=== PATIENT | male | born 1975 | race Caucasian/White ===

== ENCOUNTER 2017-12-13 12:11 | Inpatient (IN) | payer OTHER ==
[~2017-12-13] VITALS: Ht 175.3 cm; Wt 82.6 kg
--- NOTE | ~2017-12-13 | HC ---
[facility] [place] [address] CONSULTATION Name: LAUREL KARIMI Room #: 212-P [facility] IN M.R.#: [id number] Admission: 12/13/17 Attend Phys: Gilles Ann MD Discharge: 12/15/17 Date of : 71 Report #: [id number] THIS REPORT FOR: //name// CC: Gilles Ann [facility] physician/PCP REASON FOR CONSULTATION: Chest pain. 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 This was diagnosed approximately one year ago at [facility]. He continues to abuse drugs. He was recently discharged from [facility] and underwent a cardiac catheterization at that time when he presented with chest pain and was noted to have nonobstructive disease. He presents yesterday with chest pain after using meth again. EKG shows sinus rhythm with no ischemic changes. He does have slight elevation in his troponin. He is currently chest pain free. He is here with his and they live in their car together. REVIEW OF SYSTEMS: GENERAL: No fevers or chills. HEENT: No blurred vision. CARDIOVASCULAR: As above. PULMONARY: No cough. GASTROINTESTINAL: No nausea or vomiting. GENITOURINARY: No dysuria. MUSCULOSKELETAL: No myalgias or arthralgias. ENDOCRINE: No heat or cold intolerance. PAST MEDICAL HISTORY: As mentioned above. SOCIAL HISTORY: He uses alcohol, smokes tobacco and uses meth and lives in his car. FAMILY HISTORY: Noncontributory. ALLERGIES: SULFA. MEDICATIONS: Have been reviewed. PHYSICAL EXAMINATION: VITAL SIGNS: Temperature is 36.8, pulse 95, respirations 20, blood pressure 128/93, sats 96%. GENERAL: He is asleep, but answers questions. HEENT: Oropharynx is clear. NECK: Supple, with no thyromegaly. HEART: Regular rate and rhythm with no murmurs, rubs, gallops. LUNGS: Clear to auscultation bilaterally. [facility] [address] [place] [address] CONSULTATION Name: LAUREL KARIMI CESAR Room #: [address] [place] [address] IN M.R.#: [id number] Admission: 12/13/17 Attend Phys: Gilles Ann MD Discharge: 12/15/17 Date of : 71 Report #: [id number] ABDOMEN: Soft, nontender, nondistended. EXTREMITIES: There is no clubbing, cyanosis, or edema. NEUROLOGIC: Cranial nerves 2-12 are intact. LABORATORY DATA: White count is 12, hemoglobin 13, platelets 343. Troponin was initially 1.1, decreased to 0.9 and now is 0.83. As I mentioned above, I reviewed his EKG and there are no ischemic changes. Creatinine is 1.3. Chest x-ray shows no acute process, but he does have an enlarged cardiac silhouette. ASSESSMENT: 1. Chest pain secondary to methamphetamine abuse. 2. Nonischemic cardiomyopathy. 3. Methamphetamine abuse. 4. Alcohol abuse. 5. Tobacco abuse. 6. Recent cardiac catheterization on 01/08/2018 with no obstructive disease. In summary, the patient is a 42-year-old with methamphetamine abuse and a nonischemic cardiomyopathy secondary to this. His chest pain is likely due to his methamphetamine use. His troponins are trending down. I do not think any further testing is required. I have emphasized the importance to the patient and the to discontinue drug use. He will need to continue on his standard cardiac medications. He will be okay for discharge tomorrow. <ELECTRONICALLY SIGNED> By: Oracio Clifford MD 12/27/17 1750 1028 [id number] Oracio Clifford MD /nt
--- NOTE | ~2017-12-13 | EKG ---
[address] [place] [address] ELECTROCARDIOGRAM REPORT Name: QUETA KARIMINick GUERRERO Room #: 212-P ADM IN M.R.#: [id number] Admission: 12/13/17 Attend Phys: Gilles Ann MD Discharge: Date of : 71 Report #: [id number] THIS REPORT FOR: //name// [facility] ED Test Date: 2017-12-13 Test Time: 12:14:37 Pat Name: LAUREL KARIMI Department: Room: 212 Gender: M Dye Weigher: ANTHONY : 1975 Requested By: Cody Delgado Order Number: [id number] MD: Oracio Cliffodr Measurements Intervals [place] Rate: 94 P: 62 ND: 183 QRS: -2 QRSD: 97 T: 161 QT: 368 QTc: 461 Interpretive Statements Sinus rhythm Probable left atrial enlargement LVH with secondary repolarization abnormality No previous ECG available for comparison Electronically Signed On 12-14-2017 13:20:54 [employer] by Oracio Clifford [email or web address] <ELECTRONICALLY SIGNED> By: Oracio Clifford MD 12/14/17 1320 1214 13 Oracio Clifford MD /HERMINIA
[2017-12-13 12:15] VITALS: BP 111/80
[2017-12-13 13:09] LABS: ABSOLUTE NEUTROPHILS 6.1 thou/uL (1.4-8.2); BASOPHILS 0.8 % (0.0-2.0); EOSINOPHILS 1.7 % (0.0-3.0); HEMOGLOBIN 13.9 gm/dL (14.0-18.0); LYMPHOCYTES 13.6 % (24.0-44.0); MCHC 32.4 g/dL (28.0-37.0); MCV 86.6 fL (80.0-100.0); MONOCYTES 7.5 % (1.0-8.0); PLATELET COUNT 303 thou/uL (150-400); POLYS 76.4 % (36.0-66.0); RBC 4.96 mil/uL (4.50-6.00); RDW 16.4 % (10.5-14.5)
[2017-12-13 13:27] LABS: CALCIUM 9.2 mg/dL (8.5-10.1); CREATININE 1.5 mg/dL (0.7-1.3); POTASSIUM 4.8 mmol/L (3.5-5.1)
[2017-12-13 13:30] LABS: TROPONIN-I 1.16 ng/mL (<0.06)
[2017-12-13 16:48] VITALS: BP 110/74
[2017-12-13 17:15] VITALS: BP 113/83
[2017-12-13] MEDS ORDERED: COREG6.25 MG PO (18:06)
[2017-12-13] MEDS ORDERED: LISINOPRIL5 MG PO (18:07)
[2017-12-13] MEDS ORDERED: ASPIR-TRIN325 MG PO (18:07)
[2017-12-13] MEDS ORDERED: LASIX 40 MG TAB40 M2 PO (18:08)
[2017-12-13 20:15] VITALS: BP 110/73
[2017-12-14 05:00] VITALS: BP 113/87
[2017-12-14 07:59] LABS: HEMATOCRIT 43.4 % (42.0-52.0); HEMOGLOBIN 13.9 gm/dL (14.0-18.0); MCH 27.5 pg (26.0-34.0); MCHC 32.1 g/dL (28.0-37.0); MCV 85.7 fL (80.0-100.0); RBC 5.07 mil/uL (4.50-6.00); WBC 12.6 thou/uL (4.0-11.0)
[2017-12-14 08:15] VITALS: BP 128/93
[2017-12-14 08:16] LABS: CALCIUM 8.9 mg/dL (8.5-10.1); CREATININE 1.3 mg/dL (0.7-1.3); POTASSIUM 4.1 mmol/L (3.5-5.1)
[2017-12-14 08:31] LABS: TROPONIN-I 0.83 ng/mL (<0.06)
[2017-12-14 11:05] VITALS: BP 98/64
[2017-12-14 12:08] LABS: AMP/METHAMP POSITIVE (Negative); BARBITURATES Negative (Negative); BENZODIAZEPINES POSITIVE (Negative); COCAINE Negative (Negative); METHADONE Negative (Negative); OPIATES Negative (Negative); PCP Negative (Negative)
[2017-12-14 15:20] VITALS: BP 100/70
[2017-12-14 20:12] VITALS: BP 85/53
[2017-12-15 04:03] LABS: CHOLESTEROL 105 mg/dL (<200); HDL CHOLESTEROL 22 mg/dL (>40); LDL CHOLESTEROL 68 mg/dL (<100); SERUM ASSESSMENT Clear; TC:HDL 4.8 Ratio (Not establshd); TRIGLYCERIDE 78 mg/dL (<150); VLDL 16 mg/dL (<40)
[2017-12-15 04:27] VITALS: BP 93/65
[2017-12-15 08:00] VITALS: BP 97/70
[2017-12-15] MEDS ORDERED: LIPITOR 20 MG T20 M1 PO (08:31)
[2017-12-15 08:52] VITALS: BP 97/70
== END 2017-12-15 09:36 | disposition home or self-care (01) | DRG 313 ==
LOC: ER 12:11 → EROBS 15:13 → 2N 15:13
PROVIDERS: Hospitalist; Internal Medicine Cardiovascular Disease; Physician Assistant
DX: R07.89 Other chest pain (principal); I42.9 Cardiomyopathy, unspecified; I50.9 Heart failure, unspecified; F17.210 Nicotine dependence, cigarettes, uncomplicated; I11.0 Hypertensive heart disease with heart failure; F19.10 Other psychoactive substance abuse, uncomplicated; Z28.21 Immunization not carried out because of patient refusal; Z88.2 Allergy status to sulfonamides; Z87.442 Personal history of urinary calculi; T50.995A Adverse effect of other drugs, medicaments and biological substances, initial encounter; Y92.89 Other specified places as the place of occurrence of the external cause
CPT/HCPCS: 10081